=== PATIENT | female | born 1960 | race Caucasian/White ===

== ENCOUNTER → 2017-04-22 | Day surgery (SDC) | payer BC ==
[~2017-04-22] MED LIST: ACETAMINOPHEN 325 MG TAB ONE; BUPIVACAINE HCL PF 0.75% 30 ML VIAL ONE; CLINDAMYCIN PHOS 900 MG/6 ML VIAL ONE; EPINEPHrine HCL (1:1000) 30 MG/30 ML VIAL ONE; LACTATED RINGER'S 1000 ML INJ 1,000 ML ONE; LIDOCAINE 1.5%/EPINEPHrine 1:200,000 PF SOLN 30 ML AMP ONE; MIDAZOLAM HCL 5 MG/ML VIAL (1 ML) ONE; ONDANSETRON HCL 4 MG/2 ML VIAL IV PUSH ONE; PROPOFOL 200 MG/20 ML AMP IV ONE; ceFAZolin 2 GM PREMIX 50 ML ONE
--- NOTE | 2017-04-23 18:17 | MP ---
cc: YOUSIF VEGA DATE OF SURGERY April 22, 2017 PREOPERATIVE DIAGNOSIS Right shoulder rotator cuff tear, right shoulder impingement syndrome, right shoulder labral tear. POSTOPERATIVE DIAGNOSES Right shoulder rotator cuff tear, right shoulder impingement syndrome, right shoulder labral tear. PROCEDURE Right shoulder arthroscopic rotator cuff repair, right shoulder arthroscopic subacromial decompression, right shoulder arthroscopic extensive debridement of SLAP labral tear. SURGEON Dr. Yousif Vega INSIGHTS ANALYST [place] ANESTHESIA General with an interscalene block. ESTIMATED BLOOD LOSS Less than 10 cc. COMPLICATIONS None. IMPLANTS USED Arthrex. JUSTIFICATION This patient is a 56-year-old female who injured the right shoulder. She had persistent symptoms of pain, weakness in regards to the condition with failure of conservative treatment. Clinical exam as well as MRI confirmed the above-named findings. The patient was counseled as to the risks, benefits, alternatives to the above named proposed surgical procedure. She did wish to proceed with surgery. PROCEDURE IN DETAIL A written consent was obtained. The patient was identified by name, taken to operating room and placed supine on operating room table. General anesthesia was administered as well as 2 grams of IV Ancef. She did receive preoperative interscalene block. The patient was carefully turned to the left lateral decubitus position. A lateral arm roll was placed. All bony prominences and pressure points were well-padded. An arthroscopic arm van was gently applied to the right upper extremity, 10 pounds of traction placed. The right shoulder prepped and draped using isopropyl alcohol, Hibiclens solution and Chloraprep solution. After time-out was performed a standard posterior and anterior glenohumeral arthroscopic portal was established. The glenohumeral joint revealed extensive labral tearing along the anterior, superior, posterior aspects. There was a [place] complex present. An arthroscopic shaver was introduced in the anterior portal, extensive debridement of labrum was performed from the anterior, superior, posterior portions to include the 3 o'clock, 9 o'clock and 12 o'clock position. No significant chondromalacia of the glenohumeral joint was noted. There was evidence of full-thickness supraspinatus rotator cuff tear as visualized from the glenohumeral joint which was also debrided. Attention was turned to the subacromial space where there was evidence of impingement with bursitis. An arthroscopic shaver was introduced from the lateral port. A subacromial decompression was performed. The shaver was used to perform extensive bursectomy. An arthroscopic bur was used to perform an acromioplasty and the cautery device was used to release the coracoacromial ligament. The bur was used to decorticate the greater tuberosity in preparation for rotator cuff tendon repair. An Arthrex scorpion device was used to shuttle #2 fiber tape suture in a horizontal mattress pattern through the anterior and midportions of the torn tendon. A #2 fiber link suture was placed along the posterior portion. The sutures were then placed through the eyelet of an Arthrex 4.75 mm Bio-SwiveLock anchor. The sutures are tensioned, the anchor was inserted in the greater tuberosity for rotator cuff tendon repair. The repair was probed and noted to have good stability and fixation at the conclusion of the surgical procedure. The arthroscopic portal was closed with 3-0 Prolene suture. Sterile dressing applied. The patient was placed in a sling and swath immobilizer. She tolerated the procedure with no intraoperative complications noted. Alfonso Babin, physician dental assistant teacher-certified, was present during the entire procedure to include patient positioning and the procedure itself. The medical necessity of physician dental assistant teacher was indicated in this case due to the complexity of the procedure. He assisted with appropriate manipulation of the arm and manipulation of the camera. He assisted with shuttling of sutures also implantation of suture anchor for purposes of rotator cuff tendon repair. MD FERNY Osullivan/GIOVANNI /8:35 AM /5:49 PM
== END | disposition home or self-care (01) ==
LOC: ESDC 06:04
PROVIDERS: ATTEND Orthopaedic Surgery Sports Medicine
DX: M75.121 Complete rotator cuff tear or rupture of right shoulder, not specified as traumatic (principal); M75.41 Impingement syndrome of right shoulder; S43.431A Superior glenoid labrum lesion of right shoulder, initial encounter
CPT/HCPCS: 01630; 01991; 29823; 29826; 29827; 64417; C1713; J0171; J0690; J2250; J2405; J3010; J7120